=== PATIENT | male | born 1950 | race Caucasian/White ===

== ENCOUNTER → 2016-10-25 | Outpatient (CLI) | payer OTHER ==
--- NOTE | 2016-10-25 08:55 | CT ---
EXAMINATION TYPE: CT abdomen w con DATE OF EXAM: 10/25/2016 7:32 AM COMPARISON: NONE HISTORY: elevated liver enzymes CT DLP: 1164.1 mGycm, Automated Exposure Control for Dose Reduction was Utilized. CONTRAST: CT scan of the abdomen is performed with oral and with IV Contrast, patient injected with 100 mL of O mnipaque 300. FINDINGS: LUNG BASES: Some focal linear scarring or atelectasis in the lingula at level of diaphragm is noted o n axial image 15. LIVER/GB: Liver is diffusely hypodense suggesting probable fatty infiltration but this finding should be confirmed with noncontrast CT/MRI or ultrasound if desired. No suspicious solid or cystic intrahe patic mass is identified. No suspicious intrahepatic or extrahepatic biliary dilatation is seen. PANCREAS: No significant abnormality is seen. SPLEEN: No significant abnormality is seen. ADRENALS: No significant abnormality is seen. KIDNEYS: No significant abnormality is seen. BOWEL: The oral contrast does not reach colonic level. There is no suspicious small or large bowel di latation seen. Normal-appearing appendix is seen from cecum. LYMPH NODES: No greater than 1cm abdominal lymph nodes are appreciated. OSSEOUS STRUCTURES: No significant abnormality is seen. OTHER: No significant additional abnormality is seen. IMPRESSION: Probable diffuse fatty infiltration of liver.
== END | disposition home or self-care (01) ==
LOC: RADCTMAIN 06:35
PROVIDERS: ATTEND Family Medicine
DX: R74.8 Abnormal levels of other serum enzymes (principal)
CPT/HCPCS: 74160; Q9967

== ENCOUNTER → 2016-10-30 | Outpatient (CLI) | payer OTHER ==
--- NOTE | 2016-10-30 21:48 | MR ---
EXAMINATION TYPE: MR lumbar spine wo/w con DATE OF EXAM: 10/30/2016 9:22 PM COMPARISON: CT abdomen October 25, 2016. HISTORY: Low back pain radiating to left lower extremity per order. Severe back pain into left hip bu ttocks and thigh per patient. TECHNIQUE: Multiplanar, multisequence images of the lumbar spine is performed without and with IV contrast, util izing 20 mL intravenous MultiHance FINDINGS: Sagittal images of the lumbar spine show vertebral body heights and alignment to appear sat isfactory. Multilevel disc desiccation is seen but disc space heights are fairly well-maintained. Pos terior disc herniations are seen L4-L5 and L5-S1 levels on sagittal images. Increased signal posterio rly consistent with annular tear is noted at these levels. The conus medullaris is slightly high in p osition ending at inferior T12 vertebral body level. No abnormal signal is seen. No suspicious clumpi ng of lumbosacral nerve roots is noted. The bone marrow signal intensity is overall slightly heteroge neous. No abnormal postcontrast enhancement is noted. No significant spurring is seen. Axial images show the T12-L1 level to appear within normal limits. Axial images at L1-L2 level show mild broad disc bulge mildly effacing anterior thecal sac on axial i mage 25, bilateral neural foramina are patent. Axial images at L2-L3 level show mild to moderate broad disc bulge mildly effacing anterior thecal sa c. There is mild facet degenerative changes and ligamentum flavum hypertrophy. There is mild bilatera l anterior inferior neural foraminal narrowing at this level identified. Axial images at L3-L4 level show moderate broad-based posterior disc protrusion mildly effacing anter ior thecal sac on axial image 15. There is mild facet degenerative changes bilaterally. There is mild to moderate right and mild left-sided anterior inferior neural foraminal narrowing noted at this lev el. Axial images at L4-L5 level show broad-based left paracentral disc protrusion effacing anterolateral thecal sac and left lateral recess, effacement of central left L4 nerve is suspected on axial image 1 0. There are mild facet degenerative changes and ligamentum flavum hypertrophy. There is mild bilater al anterior inferior neural foraminal narrowing at this level identified. Axial images at the L5-S1 level show broad-based central disc protrusion but spinal canal is preserve d. There are mild to moderate facet degenerative changes bilaterally. Bilateral neural foramina are p atent. Paraspinal muscle bulk is preserved. No suspicious retroperitoneal findings are identified. IMPRESSION: Multilevel degenerative changes in the lumbar spine as detailed above. Attention to L4-L5 level where eccentric disc herniation effaces anterolateral thecal sac and lateral recess and suspec angel the central left L5 nerve.
== END | disposition home or self-care (01) ==
LOC: RADMRIMAIN 20:12
PROVIDERS: ATTEND Family Medicine
DX: M47.26 Other spondylosis with radiculopathy, lumbar region (principal); M47.816 Spondylosis without myelopathy or radiculopathy, lumbar region
CPT/HCPCS: 72158; A9577

== ENCOUNTER 2017-12-19 13:08 | Emergency (ER) | payer MEDICARE, OTHER ==
[2017-12-19 13:34] VITALS: RESP 18
[2017-12-19] MEDS ORDERED: ORPHENADRINE 30 MG/ML 2 ML VIAL IM STA (14:00)
[2017-12-19] MEDS ORDERED: KETOROLAC 60 MG/2 ML VIAL IM STA (14:00)
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
--- NOTE | 2017-12-19 14:59 | XR ---
Lumbar spine HISTORY: Sciatica, pain 3 views of the lumbar spine Lumbar spine MRI dated 10/30/2016 There is a spinal curvature. Lumbar vertebral bodies show stable height and alignment. Bone mineraliz ation is reduced. Loss of disc height is present at L5-S1, there is multilevel spondylosis. Sclerosis present in the posterior elements of the lower lumbar spine. IMPRESSION: Degenerative disc disease, facet arthropathy, osteopenia, scoliosis.
--- NOTE | 2017-12-19 15:02 | XR ---
Right shoulder HISTORY: Pain 3 views of right shoulder Bone mineralization, joint spaces and alignment are maintained. Calcification is present near the ins ertion of the rotator cuff on the proximal humerus. Right lung apex as visualized is normal. IMPRESSION: Consider calcific tendinitis.
--- NOTE | 2017-12-19 15:30 | ED ---
Disposition Clinical Impression: Acute exacerbation of chronic low back pain, DDD (degenerative disc disease), lumbar, Scoliosis of lumbar spine, Spondylosis of lumbar spine, Calcific tendinitis of right shoulder Disposition: HOME SELF-CARE Condition: Good Instructions: Chronic Back Pain (ED), Degenerative Disc Disease (ED) Additional Instructions: Patient denies follow-up with orthopedic outpatient coding specialist. Take muscle relaxers as prescribed. Return to the emergency department if any alarming signs or symptoms occur. Prescriptions: HYDROcodone/APAP 10-325MG [[place] 10-325] 1 tab PO Q4-6H PRN #15 tab PRN Reason: Pain Orphenadrine [Norflex] 100 mg PO Q12H #12 tablet.er Is patient prescribed a controlled substance at d/c from ED?: No If prescribed controlled substance>3 days was MAPS reviewed?: No When asked, does pt state using other controlled substances?: No Referrals: George Singh MD [Primary Care Provider] - 1-2 days Nico Ignacio DO [Doctor of Osteopathic Medicine] - 1-2 days
[2017-12-19 15:38] VITALS: BP 154/83; PULSE 69; TEMP 97.4
== END 2017-12-19 15:38 | disposition home or self-care (01) ==
LOC: EC 13:08
DX: M51.36 Other intervertebral disc degeneration, lumbar region (principal); M41.86 Other forms of scoliosis, lumbar region; M47.896 Other spondylosis, lumbar region; M75.31 Calcific tendinitis of right shoulder; M54.5 Low back pain; G89.29 Other chronic pain; F32.9 Major depressive disorder, single episode, unspecified; Z79.899 Other long term (current) drug therapy; Z88.0 Allergy status to penicillin; Z88.2 Allergy status to sulfonamides
CPT/HCPCS: 72100; 73030; 99284; 96372 ×2; J2360; J1885

== ENCOUNTER 2018-05-14 19:20 | Inpatient (IN) | payer OTHER, MEDICARE ==
[2018-05-14] MEDS ORDERED: MORPHINE SULFATE 4 MG/ML SYRINGE IM STA (21:07)
[2018-05-14] MEDS ORDERED: ORPHENADRINE 30 MG/ML 2 ML VIAL IM STA (21:07)
--- NOTE | 2018-05-14 22:15 | CT ---
EXAMINATION TYPE: CT lumbar spine wo con DATE OF EXAM: 05/14/2018 9:53 PM COMPARISON: None HISTORY: Back pain CT DLP: mGycm Automated exposure control for dose reduction was used. Unenhanced CT of the lumbar spine was performed. Bone and soft tissue window settings are submitted as well as coronal and sagittal reconstructions. Lumbar vertebra have normal alignment. There is compression deformity of L4 vertebral body with depre ssion of the superior endplate. There is 25% loss of height. The fracture appears acute. There is no lumbar paraspinal mass. There is mild lateral recess stenosis due to facet arthropathy in the mid and lower lumbar spine. Sacroiliac joints are intact. There is osteopenia. IMPRESSION: L4 compression fracture is new compared to 10/25/2016 CT scan. Fracture appears acute. Osteopenia. The re is only minimal posterior fragment extension encroaching the spinal canal 3 mm.
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
[2018-05-14] MEDS ORDERED: ONDANSETRON 4 MG/2 ML VIAL IVP PRN (23:26)
[2018-05-14] MEDS ORDERED: NALOXONE 0.4 MG/ML 1 ML VIAL IV PRN (23:26)
[2018-05-15 00:10] LABS: Basophils # (A) 0.1 k/uL (0-0.2); Basophils % (A) 1 %; Eosinophils # (A) 0.2 k/uL (0-0.7); Eosinophils % (A) 2 %; HCT 44.2 % (39.0-53.0); Lymphocytes # (A) 1.9 k/uL (1.0-4.8); Lymphocytes % (A) 17 %; MCH 29.6 pg (25.0-35.0); MCHC 33.9 g/dL (31.0-37.0); MCV 87.5 fL (80.0-100.0); Mean Platelet Volume 6.3; Monocytes # (A) 0.8 k/uL (0-1.0); Monocytes % (A) 7 %; Neutrophils # (A) 8.2 k/uL (1.3-7.7); Neutrophils % (A) 73 %; Platelet Count 222 k/uL (150-450); RBC 5.05 m/uL (4.30-5.90); RDW 12.9 % (11.5-15.5); WBC 11.2 k/uL (3.8-10.6)
[2018-05-15 00:19] LABS: ALT 83 U/L (21-72); AST 59 U/L (17-59); Albumin 4.2 g/dL (3.5-5.0); Alkaline Phosphatase 78 U/L (38-126); Anion Gap 10 mmol/L; Blood Urea Nitrogen 20 mg/dL (9-20); Calcium 9.4 mg/dL (8.4-10.2); Carbon Dioxide 22 mmol/L (22-30); Chloride 105 mmol/L (98-107); Glucose 107 mg/dL (74-99); Potassium 4.1 mmol/L (3.5-5.1); Sodium 137 mmol/L (137-145); Total Bilirubin 0.4 mg/dL (0.2-1.3); Total Protein 7.3 g/dL (6.3-8.2)
[2018-05-15] MEDS: MORPHINE SULFATE 4 MG/ML SYRINGE IV PRN ×2 (00:26→03:56)
[2018-05-15 00:44] VITALS: BMI 29.6
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
[2018-05-15] MEDS: HYDROcodone/APAP 5-325MG 1 EACH TAB PO PRN ×2 (10:54→15:09)
[2018-05-15] MEDS: CITALOPRAM HYDROBROMIDE 20 MG TAB PO SCH (10:57)
[2018-05-15 11:46] LABS: Appearance,Urine Clear (Clear); Bilirubin,Urine Negative (Negative); Blood,Urine Negative (Negative); Color,Urine Yellow; Glucose,Urine (UA) Negative (Negative); Ketones,Urine Negative (Negative); Leukocyte Esterase,Urine Negative (Negative); Nitrite,Urine Negative (Negative); Protein,Urine Negative (Negative); Specific Gravity,Urine 1.016 (1.001-1.035); Urobilinogen,Urine <2.0 mg/dL (<2.0)
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
[2018-05-15] MEDS: CYCLOBENZAPRINE 10 MG TAB PO PRN (18:15)
[2018-05-15] MEDS ORDERED: SENNOSIDES 8.6 MG TAB PO STA (18:17)
[2018-05-16] MEDS: HYDROcodone/APAP 5-325MG 1 EACH TAB PO PRN ×4 (00:19→20:44)
[2018-05-16] MEDS: CITALOPRAM HYDROBROMIDE 20 MG TAB PO SCH (07:20)
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
[2018-05-17] MEDS: HYDROcodone/APAP 5-325MG 1 EACH TAB PO PRN ×4 (01:48→21:16)
[2018-05-17] MEDS: CITALOPRAM HYDROBROMIDE 20 MG TAB PO SCH (07:19)
--- NOTE | 2018-05-17 11:39 | P.PN ---
Progress Note - Text Progress Note Date: 05/17/18 The patient's discharge was delayed due to his increased back pain. Patient is currently being evaluated by Dr. Ignacio. Is unsure if he will need surgery for his fracture. On exam is lesser stable. His abdomen is soft. We will transfer care to Dr. Girard service. We will sign off.
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
[2018-05-17 20:16] VITALS: RESP 18
[2018-05-18] MEDS: CYCLOBENZAPRINE 10 MG TAB PO PRN (00:51)
[2018-05-18] MEDS: HYDROcodone/APAP 5-325MG 1 EACH TAB PO PRN ×3 (02:49→14:14)
[2018-05-18 08:05] VITALS: BP 156/89; PULSE 65; TEMP 97.9
[2018-05-18] MEDS: CITALOPRAM HYDROBROMIDE 20 MG TAB PO SCH (08:19)
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
== END 2018-05-18 14:30 | disposition home or self-care (01) | DRG 552 ==
LOC: EC 19:20 → 3SUR 23:37 → 4SSUR 05-17 07:38
PROVIDERS: ADMIT Orthopaedic Surgery Orthopaedic Surgery of the Spine; ATTEND Orthopaedic Surgery Orthopaedic Surgery of the Spine
DX: S32.041A Stable burst fracture of fourth lumbar vertebra, initial encounter for closed fracture (principal); F32.9 Major depressive disorder, single episode, unspecified; M16.0 Bilateral primary osteoarthritis of hip; M51.36 Other intervertebral disc degeneration, lumbar region; M47.816 Spondylosis without myelopathy or radiculopathy, lumbar region; M48.061 Spinal stenosis, lumbar region without neurogenic claudication; M54.2 Cervicalgia; G89.29 Other chronic pain; G43.909 Migraine, unspecified, not intractable, without status migrainosus; R43.9 Unspecified disturbances of smell and taste; H91.91 Unspecified hearing loss, right ear; Z79.899 Other long term (current) drug therapy; Z86.73 Personal history of transient ischemic attack (TIA), and cerebral infarction without residual deficits; Z87.39 Personal history of other diseases of the musculoskeletal system and connective tissue; Z87.81 Personal history of (healed) traumatic fracture; Z88.0 Allergy status to penicillin; Z88.2 Allergy status to sulfonamides; V48.5XXA Car driver injured in noncollision transport accident in traffic accident, initial encounter; Y92.410 Unspecified street and highway as the place of occurrence of the external cause; Z83.49 Family history of other endocrine, nutritional and metabolic diseases; Z82.0 Family history of epilepsy and other diseases of the nervous system; Z80.0 Family history of malignant neoplasm of digestive organs; Z80.8 Family history of malignant neoplasm of other organs or systems; Z82.49 Family history of ischemic heart disease and other diseases of the circulatory system
CPT/HCPCS: 72020; 72131; 80053; 81003; 85025; 96372; 99285

== ENCOUNTER → 2018-06-29 | Outpatient (CLI) | payer OTHER, MEDICARE ==
--- NOTE | 2018-06-29 18:49 | MR ---
EXAMINATION TYPE: MR brain/cspine wo/w DATE OF EXAM: 06/29/2018 COMPARISON: 06/06/2016 brain HISTORY: 67-year-old male Headaches, neck pain TECHNIQUE: Multiplanar, multisequence images of the brain and brainstem were acquired before and aft er administration of 10 mL IV Gadavist. Diffusion weighted imaging is performed. Subsequent planar, multi sequence images of the cervical spine before and after IV contrast administration. FINDINGS: HEAD: No evidence for acute infarction, hemorrhage, mass, mass effect, midline shift, herniation, effacemen t of basal cisterns, or extra-axial fluid collection. The ventricles and sulci are age-appropriate. Stable extensive cortical and subcortical areas of T2/FLAIR weighted signal in the anterior right fro ntal lobe and to a lesser extent, along the floor of the anterior left frontal lobe. A few scattered T2 bright white matter foci in the subcortical region of the anterior left frontal lo be are also unchanged. Major intracranial flow voids are intact. Midline structures demonstrate normal morphology. The craniocervical junction is normal. Post contrast images demonstrate no evidence of pathologic enhancement. Dural venous sinuses are pat ent. The visualized sinuses are clear and the globes are intact. CERVICAL SPINE: No craniocervical junction abnormality, predental space widening, or prevertebral soft tissue swellin g. Mild degenerative changes of the C1 dens articulation. Mild heterogeneity of marrow signal without suspicious bone marrow replacement. Some scattered fatty Modic type II endplate changes present. Mild to moderate degenerative disc disease characterized by variable disc desiccation and disc osteop hyte complex formation. Disc osteophyte complexes are present from C3 through C7 levels. Additional scattered facet and uncovertebral joint degenerative change. Possible abnormal enhancing lesion along the right aryepiglottic fold, refer to axial postcontrast se oliver 1301, axial 26. At C2-C3, facet and uncovertebral joint degenerative change causes mild bilateral neuroforaminal sten osis without significant spinal canal stenosis. At C3-C4, large discussed by complex with uncovertebral joint and facet degenerative change. This con tinues to a mild spinal canal stenosis with abutment in minimal flattening of the ventral cord and no cord compression. Changes resulting in moderate left and mild right neural foraminal stenosis. At C4-C5, there is disc osteophyte complex with uncovertebral joint and facet degenerative change. Th is results in moderate right greater than left neuroforaminal stenosis without significant spinal can al stenosis. At C5-C6, disc osteophyte complex with uncovertebral joint and facet degenerative change. This minima lly impresses on the ventral thecal sac without significant spinal canal stenosis. Changes within mod erate right and mild left neuroforaminal stenosis. At C6-C7, there is disc osteophyte complex with uncovertebral joint and facet degenerative change. Ch anges result in moderate bilateral neuroforaminal stenosis with minimal narrowing of the ventral thec al sac. No significant spinal canal stenosis. At C7-T1, mild facet arthropathy without significant canal or foraminal stenosis. Alignment is maintained. Normal caliber and signal intensity of the cervical cord. No abnormal enhancement within the spinal c anal. COMBINED IMPRESSION: HEAD: 1. Stable encephalomalacia and gliosis within the anterior right frontal lobe and to a lesser extent along the floor of the anterior left frontal lobe. Finding suggests sequela of prior traumatic or vas cular insult, the former being favored. Clinically correlate. 2. Stable mild scattered foci of white white matter change in the left frontal lobe. This could refle ct very mild burden of chronic small vessel ischemic disease or chronic migraines. 3. No acute intracranial abnormality seen. CERVICAL SPINE: 1. POSSIBLE ABNORMAL ENHANCING MUCOSAL LESION ALONG THE RIGHT ARYEPIGLOTTIC FOLD. CONTRAST ENHANCED C T NECK OR DIRECT VISUALIZATION RECOMMENDED. 2. MODERATE MULTILEVEL DEGENERATIVE DISC DISEASE WELL MULTILEVEL FACET AND UNCOVERTEBRAL JOINT ARTHROPATHY. 3. CHANGES RESULT IN MILD OVERALL SPINAL CANAL STENOSIS AT C3-C4 WITH MINIMAL ABUTMENT AND FLATTENING OF THE VENTRAL CORD AT THIS LEVEL. NO ELOISE CANAL COMPROMISE OR CORD COMPRESSION. 4. VARIABLE MULTILEVEL MODERATE NEURAL FORAMINAL STENOSES OUTLINED ABOVE.
== END | disposition home or self-care (01) ==
LOC: RADMRIMAIN 12:08
PROVIDERS: ATTEND Family Medicine
DX: M48.02 Spinal stenosis, cervical region (principal); M99.71 Connective tissue and disc stenosis of intervertebral foramina of cervical region; M50.30 Other cervical disc degeneration, unspecified cervical region; M46.97 Unspecified inflammatory spondylopathy, lumbosacral region; R90.89 Other abnormal findings on diagnostic imaging of central nervous system; G93.89 Other specified disorders of brain
CPT/HCPCS: 70553; 72156; A9585

== ENCOUNTER → 2018-07-30 | Outpatient (CLI) | payer MEDICARE, OTHER ==
--- NOTE | 2018-07-30 15:07 | XR ---
EXAMINATION TYPE: XR chest 2V DATE OF EXAM: 07/30/2018 COMPARISON: Prior chest x-ray 07/01/2016 HISTORY: Presurgery TECHNIQUE: Frontal and lateral views of the chest are obtained. FINDINGS: There is no focal air space opacity, pleural effusion, or pneumothorax seen. The cardiac silhouette size is within normal limits. The osseous structures are intact. IMPRESSION: No acute cardiopulmonary process.
[2018-07-30 15:30] LABS: Appearance,Urine Cloudy (Clear); Bacteria,Urine Rare /hpf; Bilirubin,Urine Negative (Negative); Blood,Urine Negative (Negative); Color,Urine Yellow; Glucose,Urine (UA) Negative (Negative); Ketones,Urine Negative (Negative); Leukocyte Esterase,Urine Negative (Negative); Mucus,Urine Few /hpf; Nitrite,Urine Negative (Negative); PH, Urine 5.5 (5.0-8.0); Protein,Urine Negative (Negative); Specific Gravity,Urine 1.016 (1.001-1.035); Sperm,Urine Rare /hpf; Urobilinogen,Urine <2.0 mg/dL (<2.0); WBC,Urine <1 /hpf (0-5)
[2018-07-30 15:38] LABS: Basophils # (A) 0.1 k/uL (0-0.2); Basophils % (A) 1 %; Eosinophils # (A) 0.2 k/uL (0-0.7); Eosinophils % (A) 2 %; HCT 45.9 % (39.0-53.0); HGB 15.6 gm/dL (13.0-17.5); Lymphocytes # (A) 1.9 k/uL (1.0-4.8); Lymphocytes % (A) 27 %; MCH 29.9 pg (25.0-35.0); MCHC 33.9 g/dL (31.0-37.0); MCV 88.2 fL (80.0-100.0); Mean Platelet Volume 6.7; Monocytes # (A) 0.6 k/uL (0-1.0); Monocytes % (A) 9 %; Neutrophils # (A) 4.1 k/uL (1.3-7.7); Neutrophils % (A) 60 %; Platelet Count 274 k/uL (150-450); RDW 12.8 % (11.5-15.5); WBC 6.9 k/uL (3.8-10.6)
[2018-07-30 15:40] LABS: Anion Gap 10 mmol/L; Blood Urea Nitrogen 16 mg/dL (9-20); Calcium 9.9 mg/dL (8.4-10.2); Carbon Dioxide 23 mmol/L (22-30); Chloride 106 mmol/L (98-107); Glucose 106 mg/dL (74-99); INR 1.1 (<1.2); Partial Thromboplastin Time 24.9 sec (22.0-30.0); Potassium 4.7 mmol/L (3.5-5.1); Prothrombin Time 11.1 sec (9.0-12.0); Sodium 139 mmol/L (137-145)
== END ==
LOC: LABPAT 14:27
PROVIDERS: ATTEND Orthopaedic Surgery Orthopaedic Surgery of the Spine
DX: Z01.818 Encounter for other preprocedural examination (principal); Z01.812 Encounter for preprocedural laboratory examination; S32.049A Unspecified fracture of fourth lumbar vertebra, initial encounter for closed fracture; M54.5 Low back pain
CPT/HCPCS: 36415; 71046; 80048; 81001; 85025; 85610; 85730

== ENCOUNTER 2018-08-10 12:05 | Day surgery (SDC) | payer MEDICARE, OTHER ==
[2018-07-29 13:18] VITALS: BMI 29.1
[~2018-08-10 12:05] MED LIST: DEXAMETHASONE SOD PHOSPHATE 10 MG/ML 1 ML VIAL IV ONE; LACTATED RINGERS 1,000 ML IV SCH; LIDOCAINE 1% 20 ML VIAL (10MG/ML) FOR IV START INTRADERMA PRN; MIDAZOLAM (PF) 2 MG/2 ML VIAL IV PRN; ceFAZolin IN SWFI 2 GM/20 ML SYRINGE IVP ONE; fentaNYL (PF) 50 MCG/ML 2 ML AMP IV PRN
[2018-08-10] MEDS ORDERED: DEXAMETHASONE SOD PHOSPHATE 10 MG/ML 1 ML VIAL IV ONE (13:33)
[2018-08-10] MEDS ORDERED: MIDAZOLAM 2 MG/2 ML VIAL IV ONE (13:34)
[2018-08-10] MEDS ORDERED: GLYCOPYRROLATE 0.2 MG/ML 2 ML VIAL ONE (13:48)
[2018-08-10] MEDS ORDERED: LIDOCAINE 1% INJ 10MG/ML (20 ML MDV) ONE (13:48)
[2018-08-10] MEDS ORDERED: PROPOFOL 10 MG/ML 20 ML VIAL IV ONE (13:48)
[2018-08-10] MEDS ORDERED: PHENYLEPHRINE-0.9% NACL SYG 1 MG/10 ML SYRINGE ONE (13:48)
[2018-08-10] MEDS ORDERED: fentaNYL (PF) 50 MCG/ML 2 ML AMP ONE (13:48)
[2018-08-10] MEDS ORDERED: MIDAZOLAM 2 MG/2 ML VIAL ONE (13:48)
[2018-08-10] MEDS ORDERED: SUCCINYLCHOLINE CHLORIDE 100 MG/5 ML SYR IV ONE (13:48)
[2018-08-10] MEDS ORDERED: CLINDAMYCIN 150 MG/ML 4 ML VIAL IVPB ONE (13:57)
[2018-08-10] MEDS ORDERED: IOPAMIDOL M200 10 ML VIAL MISCELLANE ONE (14:13)
[2018-08-10] MEDS ORDERED: BUPIVACAIN-EPI 0.5%-1:200,000 30 ML VIAL SQ ONE ×2 (14:13)
[2018-08-10] MEDS ORDERED: HYDROcodone/APAP 5-325MG 1 EACH TAB PO PRN ×2 (14:55)
[2018-08-10] MEDS ORDERED: BENZOCAINE/MENTHOL LOZENG 1 EACH LOZENGE MUCOUS MEM PRN (14:55)
[2018-08-10] MEDS ORDERED: KETOROLAC 30 MG/ML 1 ML VIAL IVP PRN (14:55)
[2018-08-10] MEDS ORDERED: HYDROmorphone 0.5 MG/0.5 ML SYRINGE IVP PRN (14:55)
[2018-08-10] MEDS ORDERED: HYDROmorphone 1 MG/ML 1 ML SYRINGE IVP PRN (14:55)
[2018-08-10] MEDS ORDERED: ONDANSETRON 4 MG/2 ML VIAL IVP PRN (14:55)
[2018-08-10] MEDS ORDERED: traMADol 50 MG TAB PO PRN (14:57)
[2018-08-10] MEDS ORDERED: SODIUM CHLORIDE 0.9% 1,000 ML IV SCH (15:00)
--- NOTE | 2018-08-10 15:01 | P.OP ---
Date of Procedure: 08/10/18 Preoperative Diagnosis: L4 traumatic compression fracture, low back pain Postoperative Diagnosis: Same Anesthesia: GETA Pathology: other (L4 vertebral body biopsy to pathology) Condition: stable Disposition: PACU Description of Procedure: BRIEF OPERATIVE NOTE Preoperative Diagnosis: Vertebral compression fracture, traumatic of L4 with low back pain Postoperative Diagnosis: Same Procedure: Kyphoplasty of L4 Vertebral body biopsy of L4 Use of biplanar fluoroscopic guidance Surgeon: Dr. Ignacio Electrodynamicist: Julio César Wiley is present throughout the entire the case persistence during positioning, dissection, exposure, visualization, and all crucial elements of the case as well as closure. Anesthesia: General anesthesia Estimated blood loss: Less than 10 mL Specimen: Vertebral body biopsy sent to pathology in formalin Complications: None apparent Components implanted: Bone cement Disposition: To recovery room in good stable condition. OPERATIVE INDICATIONS The patient has been having issues in their back ever since sustaining an injury. He did sustain an injury and was found have a traumatic compression fracture at L4 and acute onset of low back pain. We attempted treat him conservatively over the past couple of months however he was continued have unrelenting pain and severe debility and inability to Get up and around pain in his back. The patient has been through conservative treatment. They attempted conservative care with bracing however they're not having any benefit despite brace use. They continue to have significant pain and debility due to their fracture. We discussed various treatment options including surgery, and the patient wishes to proceed with surgery We discussed the risk, patient's alternatives and benefits of surgery including but not limited to, risk of bleeding risk of infection, risk of need for further surgery, risk of decreased , loss of motion, loss of function, cement extravasation, nerve damage, paralysis, heart attack, blindness and . OPERATIVE SUMMARY After discussing all the risks, patient alternatives and benefits at length, the patient elected to proceed with surgical intervention, signed informed consent, and presented for their procedure. The patient was seen and examined in the preoperative holding area and the surgical site was marked. The patient was given antibiotics and brought to the operating room. The patient was sedated and intubated by anesthesia in standard fashion. The patient was positioned on to the operating room table in a prone position on the appropriate well-padded and well molded bilateral chest rolls. We were careful to pad any bony prominences and pressure points. We were careful to maintain the patient's cervical spine and good neutral alignment and position throughout. We used 2 C-arm machines to establish biplanar fluoroscopic guidance in AP and lateral positions. We were able to localize the fractures appropriately. The patient was prepped and draped in a normal standard fashion. An appropriate timeout and keystone protocol performed. We were able to proceed with the surgery. The local wound area was infiltrated with local anesthetic. An incision was made over the lateral aspect of the pedicle over the appropriate levels with a small 2 mm stab incision. Intraoperative fluoroscopy was taken which showed a marker at the appropriate level of L4. With the appropriate level positively confirmed at L4, I was able to position a sharp trocar over the lateral aspect of the pedicle. As able to advance the trocar into the pedicle and into the posterior aspect of vertebral body being careful to avoid penetration cephalad caudad or medially. The trocar was placed appropriately into the posterior aspect of vertebral body at the appropriate levels of L4. This was confirmed with C-arm guidance. With the trocar intact I was then able to take a bone biopsy with a biopsy punch or a bony drill. The biopsy specimen was passed off to be sent to pathology in formalin. I was then able to place the kyphoplasty balloon within the vertebral body. The position was checked on C-arm. I was able to inflate the balloon under low pressure and visualization with C-arm. The balloon was well enclosed within the vertebral body. The cement was prepared. With the cement at appropriate working condition the balloons were deflated and removed. I was able to place bony cement with trocar with the cement delivery device under low pressure. It had good fill within the vertebral body. There is no evidence of any extravasation of the cement posteriorly toward the canal. The cement was well contained at the appropriate levels of L4. Some of the splint moved into the disc space at L3 4 through the superior endplate fracture line. It is no extravasation posteriorly toward the canal. The cement was allowed to cure appropriately. The trochars removed and final images were taken on C-arm. This showed the cement at the appropriate levels. We were able to proceed with closure. The wound was cleaned and dried and dressed with the appropriate dressing. The drapes were broken down. The patient was gently rolled back onto their hospital bed being careful to maintain their cervical spine and good neutral alignment and position. They were woken up by anesthesia, extubated, and brought to the recovery room in good stable condition. The patient will be admitted to the hospital for observation and for appropriate postoperative care, medical management and monitoring. We will continue to follow them closely about the postoperative course.
[2018-08-10 15:02] VITALS: TEMP 98.4
--- NOTE | 2018-08-10 15:40 | XR ---
Lumbar spine HISTORY: Kyphoplasty 4 intraoperative C-arm images document the procedure.
--- NOTE | 2018-08-10 15:40 | FL ---
Fluoroscopy HISTORY: Kyphoplasty 44 seconds fluoroscopy time supplied to the referring clinician. 4 intraoperative C-arm images docum ent the procedure. See dictated report from orthopedic surgery.
[2018-08-10 16:18] VITALS: RESP 18
[2018-08-10] MEDS ORDERED: traMADol 50 MG TAB PO ONE (16:49)
[2018-08-10 17:12] VITALS: BP 130/76; PULSE 72
[2018-08-10] MEDS ORDERED: CLINDAMYCIN 900 MG in DEXTROSE 5% IN WATER 50 ML IVPB SCH ×2 (18:00)
[2018-08-11] MEDS ORDERED: NON-FORMULARY DRUG (Citalopram Hydrobromide [Celexa] 40 MG) PO SCH (09:00)
== END 2018-08-10 17:31 | disposition home or self-care (01) ==
LOC: OR 12:05
PROVIDERS: ATTEND Orthopaedic Surgery Orthopaedic Surgery of the Spine
DX: S32.041A Stable burst fracture of fourth lumbar vertebra, initial encounter for closed fracture (principal); V48.5XXA Car driver injured in noncollision transport accident in traffic accident, initial encounter; Y93.89 Activity, other specified; Y92.410 Unspecified street and highway as the place of occurrence of the external cause; M51.16 Intervertebral disc disorders with radiculopathy, lumbar region; M48.061 Spinal stenosis, lumbar region without neurogenic claudication; M51.36 Other intervertebral disc degeneration, lumbar region; M25.78 Osteophyte, vertebrae; M47.27 Other spondylosis with radiculopathy, lumbosacral region; E66.9 Obesity, unspecified; Z68.29 Body mass index [BMI] 29.0-29.9, adult; G89.29 Other chronic pain; M16.11 Unilateral primary osteoarthritis, right hip; G43.909 Migraine, unspecified, not intractable, without status migrainosus; F32.9 Major depressive disorder, single episode, unspecified; F41.9 Anxiety disorder, unspecified; H91.90 Unspecified hearing loss, unspecified ear; M81.0 Age-related osteoporosis without current pathological fracture; Z79.899 Other long term (current) drug therapy; Z79.891 Long term (current) use of opiate analgesic; Z88.0 Allergy status to penicillin; Z88.2 Allergy status to sulfonamides
CPT/HCPCS: 86900; 86901; 86850; 72100; 22514; C1713; J2250; J1100; J2001; J3010; J2370; J0330; J2704; Q9966; 88307; 88311

== ENCOUNTER → 2018-10-02 | Outpatient (CLI) | payer MEDICARE, OTHER ==
[2018-10-02 10:17] LABS: HCT 45.6 % (39.0-53.0); HGB 15.2 gm/dL (13.0-17.5); MCH 29.3 pg (25.0-35.0); MCHC 33.2 g/dL (31.0-37.0); MCV 88.2 fL (80.0-100.0); Mean Platelet Volume 6.1; Platelet Count 251 k/uL (150-450); RBC 5.18 m/uL (4.30-5.90); RDW 13.3 % (11.5-15.5); WBC 8.2 k/uL (3.8-10.6)
[2018-10-02 10:27] LABS: Partial Thromboplastin Time 25.6 sec (22.0-30.0); Prothrombin Time 10.9 sec (9.0-12.0)
[2018-10-02 10:28] LABS: Appearance,Urine Clear (Clear); Bilirubin,Urine Negative (Negative); Blood,Urine Negative (Negative); Color,Urine Yellow; Glucose,Urine (UA) Negative (Negative); Ketones,Urine Negative (Negative); Leukocyte Esterase,Urine Negative (Negative); Nitrite,Urine Negative (Negative); PH, Urine 5.5 (5.0-8.0); Protein,Urine Negative (Negative); Specific Gravity,Urine 1.015 (1.001-1.035); Urobilinogen,Urine <2.0 mg/dL (<2.0)
[2018-10-02 10:32] LABS: Anion Gap 10 mmol/L; Blood Urea Nitrogen 18 mg/dL (9-20); Carbon Dioxide 26 mmol/L (22-30); Chloride 104 mmol/L (98-107); Potassium 4.2 mmol/L (3.5-5.1); Sodium 140 mmol/L (137-145)
== END | disposition home or self-care (01) ==
LOC: LABPAT 09:27
PROVIDERS: ATTEND Orthopaedic Surgery
DX: Z01.812 Encounter for preprocedural laboratory examination (principal); M16.11 Unilateral primary osteoarthritis, right hip
CPT/HCPCS: 36415; 80051; 81003; 82565; 84520; 85027; 85610; 85730; 86850; 86900; 86901; 87070; 93005

== ENCOUNTER 2018-10-13 08:29 | Inpatient (IN) | payer MEDICARE, OTHER ==
[~2018-10-13 08:29] MED LIST changes: +ACETAMINOPHEN TAB 500 MG TAB PO ONE; +HYDROmorphone 0.5 MG/0.5 ML SYRINGE IVP PRN; -LACTATED RINGERS 1,000 ML IV SCH; -LIDOCAINE 1% 20 ML VIAL (10MG/ML) FOR IV START INTRADERMA PRN; +MELOXICAM 7.5 MG TAB PO ONE; -MIDAZOLAM (PF) 2 MG/2 ML VIAL IV PRN; +ONDANSETRON 4 MG/2 ML VIAL IVP ONE; +ROPIVACAINE 246.25 MG, EPINEPHrine 0.5 MG, KETOROLAC 30 MG, cloNIDine HCL/PF 80 MCG, WA... MISCELLANE ONE; +TRANEXAMIC ACID 1,000 MG in SODIUM CHLORIDE 0.9% 100 ML IVPB ONE; -fentaNYL (PF) 50 MCG/ML 2 ML AMP IV PRN
[2018-10-13] MEDS ORDERED: ONDANSETRON 4 MG/2 ML VIAL IVP PRN (08:57)
[2018-10-13] MEDS ORDERED: HYDROcodone/APAP 5-325MG 1 EACH TAB PO PRN (08:57)
[2018-10-13] MEDS ORDERED: hydrOXYzine PAMOATE 25 MG CAP PO PRN (08:57)
[2018-10-13] MEDS ORDERED: MAGNESIUM HYDROXIDE 2,400 MG/10 ML CUP PO PRN (08:57)
[2018-10-13] MEDS ORDERED: HYDROmorphone 0.5 MG/0.5 ML SYRINGE IVP PRN ×3 (08:57)
[2018-10-13] MEDS ORDERED: NALOXONE 0.4 MG/ML 1 ML VIAL IV PRN (08:57)
[2018-10-13] MEDS ORDERED: DIAZEPAM 5 MG TAB PO PRN (08:57)
[2018-10-13 09:07] LABS: Glucose,Whole Blood 126 mg/dL (75-99)
[2018-10-13] MEDS: LACTATED RINGERS 1,000 ML IV SCH (09:10)
[2018-10-13] MEDS ORDERED: fentaNYL (PF) 50 MCG/ML 2 ML AMP ONE (09:35)
[2018-10-13] MEDS ORDERED: CLINDAMYCIN 150 MG/ML 4 ML VIAL IVPB ONE (09:35)
[2018-10-13] MEDS ORDERED: MIDAZOLAM 2 MG/2 ML VIAL ONE (09:35)
[2018-10-13] MEDS ORDERED: diphenhydrAMINE 50 MG/ML 1 ML VIAL ONE (09:35)
[2018-10-13] MEDS ORDERED: SODIUM CHLORIDE 0.9% 100 ML BAG ONE (09:35)
[2018-10-13] MEDS ORDERED: LACTATED RINGERS 1,000 ML BAG IV ONE (09:35)
[2018-10-13] MEDS ORDERED: PHENYLEPHRINE-0.9% NACL SYG 1 MG/10 ML SYRINGE ONE (09:35)
[2018-10-13] MEDS ORDERED: TRANEXAMIC ACID 1,000 MG/10 ML VIAL ONE (09:35)
[2018-10-13] MEDS ORDERED: HEPARIN SODIUM,PORCINE 10,000 UNIT/ML 1 ML VIAL ONE (09:35)
[2018-10-13] MEDS ORDERED: CLINDAMYCIN 1,800 MG in SODIUM CHLORIDE 0.9% IRRIGATIO 3,000 ML IRRIGATION ONE (10:09)
--- NOTE | 2018-10-13 11:09 | P.OP ---
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 The articulation is Oxinium on polyethylene. Anesthesia: spinal Surgeon: Alton Guerra Cloth Neutralizer #1: Yara Christensen Estimated Blood Loss (ml): 100 Pathology: other (Femoral head) Condition: stable Disposition: PACU Indications for Procedure: After failure of conservative treatment we discussed the surgical and nonsurgica l treatment options at length. Patient wishes to proceed with a total hip arthroplasty with a direct anterior approach. Complications specific to this procedure were discussed at length, including but not limited to infection, leg length discrepancy, dislocation, and nerve injury. Patient is aware of all these complications and informed consent was obtained Operative Findings: The operative findings are consistent with severe avascular necrosis of the right hip Description of Procedure: Patient was seen and evaluated in the preoperative area, consent was reviewed, and the surgical site was marked with a skin marker. Patient was then brought to the operating room and given prophylactic antibiotics intravenously. 1 g of Tranexamic acid was also given. A spinal anesthetic was administered by the anesthesia department. The patient was then placed on the [facility] table with the bony prominences well-padded. The hip area was then prepped and draped in usual sterile fashion. A universal timeout was then performed, which confirmed the patient's name, surgical site, ALLERGIES, and procedure being performed. Next the incision site was located at 1 cm distal and 1 cm lateral to the anterior superior iliac spine. The skin and subcutaneous tissues were sharply incised. Incision was carefully dissected down to the fascia overlying the tensor fascia pao muscle. This fascia was then incised in line with the incision. Next, using blunt finger dissection, the tensor fascia pao muscle was dissected off its investing fascia. The muscle was then carefully retracted laterally with a cobra retractor over the lateral neck of the femur. Next, the circumflex vessels were identified and cauterized using the AquaMantis device. The anterior hip capsule was then exposed. The capsule was then opened and an inverted T fashion. Cobra retractors were then placed intracapsularly. The proximal femur was then visualized. The femoral neck was then osteotomized appropriate level above the lesser trochanter. Small amount of traction was placed with the [facility] table. A small wedge of bone was then removed from the remaining femoral head. Next, using a corkscrew femoral head was easily removed from the acetabulum. On gross visual inspection, the femoral head had findngs consistent with avascular necrosis. Attention was then turned to the acetabulum. the acetabulum was exposed and any remaining labrum was excised. Sequential reaming of the acetabulum was performed using fluoroscopic guidance. When the appropriate size was reached, a trial was then placed. The position and fit of the trial was checked with fluoroscopy. The trial was then removed. Then, using fluoroscopic guidance, the final implant was impacted at 20 of anteversion and 40 of abduction, and fully seated in the acetabulum. 2 screws were then placed in the acetabulum. Again fluoroscopy was used to check position of the screws. Next, the liner was then impacted, with a 20 elevated liner located in the anterior superior quadrant. Component locking was confirmed. Attention was then directed to the femur. With the aid of the [facility] table, the femur was externally rotated to approximately 130, extended, and abducted under the opposite leg. A side hook was then placed under the proximal femur, and the side hook elevator was used to elevate the proximal femur. Retractors were then placed. A capsular release was performed, as well as a release of the conjoined tendon, which afforded excellent visualization of the proximal femur. Next, a box osteotome was used to lateralize the proximal femur. A clock and watch hands dipper was then used to locate the femoral canal. Sequential broaching was then performed with appropriate size which afforded excellent fixation in the proximal femur. A trial was then placed with appropriate head and neck, and the hip was gently reduced with the aid of the [facility] table. Fluoroscopy was then used to check position of the components, as well as to ensure equal leg lengths. The hip was then gently dislocated and the trials were then removed. Final implants were then impacted and the hip was again reduced. Final fluoroscopic x-rays confirmed that the components were in anatomic position, as well as equal leg lengths. The hip was also taken through range of motion, and found to be stable. The hip was then copiously irrigated with antibiotic solution with pulsatile lavage. The hip was then irrigated with Irrisept solution. The soft tissues were then injected with a ropivacaine solution, which consisted of 246.25 mg of ropivacaine, 0.5 mg of epinephrine, 30 mg of Toradol, 80 g of clonidine, and 48.45 mL of sterile water, for a total of 100 mL of fluid injected. A second dose of 1 g of Tranexamic acid was also given. the fascia was then closed with 2-0 strata fix suture. The subcutaneous tissue was closed with 3-0 Vicryl. The subcuticular tissue was closed with 3-0 strata fix suture. The skin was then closed with Dermabond glue and a sterile silver dressing. The patient was then transferred to the recovery room in stable condition. The housekeeper and laundry assistant SANTY Katz was required due to the complexity of surgery, and the need for skilled technical support assistant for positioning, draping, exposure, retraction, and closure of the wound.
[2018-10-13 11:48] LABS: Glucose,Whole Blood 125 mg/dL (75-99)
--- NOTE | 2018-10-13 12:01 | XR ---
Right hip HISTORY: Status post right hip surgery Single frontal view of the right hip Patient is status post right hip arthroplasty. There is anatomic alignment. Lucency present in the so ft tissues. There is overlying artifact. Bone mineralization is reduced. IMPRESSION: Orthopedic follow-up.
[2018-10-13 12:26] VITALS: BMI 27.3
--- NOTE | 2018-10-13 12:53 | FL ---
Fluoroscopy HISTORY: Hip replacement 57 seconds fluoroscopy time supplied to the referring clinician. 2 intraoperative C-arm images docum ent the procedure. See dictated report from orthopedic surgery.
--- NOTE | 2018-10-13 12:54 | XR ---
Limited right hip HISTORY: Hip arthroplasty 2 intraoperative C-arm images document the procedure.
[2018-10-13] MEDS: SODIUM CHLORIDE 0.9% 1,000 ML IV SCH (14:29)
[2018-10-13] MEDS: HYDROcodone/APAP 5-325MG 1 EACH TAB PO PRN ×2 (14:59→21:44)
[2018-10-13] MEDS ORDERED: ceFAZolin IN SWFI 2 GM/20 ML SYRINGE IVP SCH (16:00)
[2018-10-13] MEDS: CLINDAMYCIN 900 MG in DEXTROSE 5% IN WATER 50 ML IVPB SCH ×2 (16:27)
[2018-10-13 16:50] LABS: Glucose,Whole Blood 194 mg/dL (75-99)
[2018-10-13] MEDS: INSULIN ASPART (NovoLOG) 100 UNIT/ML VIAL SQ SCH ×2 (17:03→21:43)
[2018-10-13 20:31] VITALS: RESP 16
[2018-10-13 20:49] LABS: Glucose,Whole Blood 176 mg/dL (75-99)
[2018-10-13] MEDS ORDERED: SENNOSIDES-DOCUSATE SODIUM 1 EACH TAB PO SCH (21:00)
[2018-10-13] MEDS ORDERED: AMITRIPTYLINE HCL 25 MG TAB PO SCH (21:00)
[2018-10-13] MEDS: ASPIRIN 325 MG TAB PO SCH (21:43)
[2018-10-13] MEDS: metFORMIN 500 MG TAB PO SCH (21:44)
[2018-10-14] MEDS: CLINDAMYCIN 900 MG in DEXTROSE 5% IN WATER 50 ML IVPB SCH ×2 (00:40)
[2018-10-14] MEDS: HYDROcodone/APAP 5-325MG 1 EACH TAB PO PRN (04:50)
[2018-10-14 06:50] LABS: Glucose,Whole Blood 134 mg/dL (75-99)
[2018-10-14] MEDS: ASPIRIN 325 MG TAB PO SCH (07:19)
[2018-10-14] MEDS: metFORMIN 500 MG TAB PO SCH (07:19)
[2018-10-14] MEDS: LACTATED RINGERS 1,000 ML IV SCH (07:20)
[2018-10-14] MEDS: INSULIN ASPART (NovoLOG) 100 UNIT/ML VIAL SQ SCH ×2 (07:20→11:52)
[2018-10-14 07:32] LABS: Basophils % (A) 0 %; Eosinophils # (A) 0.1 k/uL (0-0.7); Eosinophils % (A) 0 %; HCT 38.6 % (39.0-53.0); HGB 12.7 gm/dL (13.0-17.5); Lymphocytes # (A) 1.8 k/uL (1.0-4.8); Lymphocytes % (A) 13 %; MCH 29.6 pg (25.0-35.0); MCHC 32.9 g/dL (31.0-37.0); MCV 90.1 fL (80.0-100.0); Mean Platelet Volume 5.8; Monocytes % (A) 8 %; Neutrophils # (A) 10.3 k/uL (1.3-7.7); Neutrophils % (A) 77 %; Platelet Count 230 k/uL (150-450); RBC 4.29 m/uL (4.30-5.90); RDW 13.5 % (11.5-15.5); WBC 13.4 k/uL (3.8-10.6)
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
[2018-10-14] MEDS ORDERED: TERIPARATIDE SQ SCH (09:00)
[2018-10-14] MEDS ORDERED: MELOXICAM 7.5 MG TAB PO SCH (09:00)
[2018-10-14] MEDS ORDERED: ARIPiprazole 5 MG TAB PO SCH (09:00)
[2018-10-14] MEDS ORDERED: CITALOPRAM HYDROBROMIDE 20 MG TAB PO SCH (09:00)
[2018-10-14 09:04] VITALS: BP 151/67; PULSE 88; TEMP 97.9
[2018-10-14] MEDS ORDERED: HYDROcodone/APAP 7.5-325MG 1 EACH TAB PO PRN ×2 (09:31)
--- NOTE | 2018-10-14 09:38 | P.DS ---
Providers Date of admission: 10/13/18 08:29 Expected date of discharge: 10/14/18 Attending physician: Alton Guerra Consults: 10/13/18 08:57 Consult Physician Routine Consulting Provider: Arron Ramirez Consult Reason/Comments: medical management Do you want consulting provider notified?: Yes Primary care physician: Didier Montoya - Discharge Diagnosis(es) (1) Avascular necrosis of bone of right hip Current Visit: Yes Status: Acute (2) Avascular necrosis of hip Current Visit: Yes Status: Acute (3) S/P total hip arthroplasty Current Visit: Yes Status: Acute Hospital Course: This is a 68-year-old male with known history of avascular necrosis of the right hip. The patient presents for evaluation. After discussion and consideration patient elects to proceed with total hip arthroplasty. The patient is seen preoperatively by Dr. Guerra and medically cleared for surgery by their primary care physician. Patient is admitted to [facility] on 10/13/2018 for total hip arthroplasty. The procedures performed without complication or sequelae. The patient is doing well postoperatively. Labs and vital signs are stable on day of discharge. On day of discharge patient's hip incision is healing well. There is minimal erythema. There is no drainage noted at this time. There is minimal soft tissue swelling to the hip and thigh. Patient has full foot and ankle motion without difficulty or pain. Calf is soft and nontender to palpation. Neurovascular status to the right lower extremity is intact. Patient is discharged home good condition. Opoid start talking form is reviewed and signed at patient bedside. Please see med rec for accurate list of home medications. Plan - Discharge Summary Discharge Rx Participant: No New Discharge Prescriptions: New Aspirin 325 mg PO BID #60 tab HYDROcodone/APAP 7.5-325MG [[place] 7.5-325] 1 - 2 tab PO Q6H PRN #56 tab PRN Reason: Pain Sennosides [Senokot] 1 tab PO BID #60 tablet traMADol HCl [Ultram] 50 mg PO BID PRN #14 tab PRN Reason: Pain No Action Citalopram Hydrobromide [CeleXA] 40 mg PO DAILY traMADol HCL [Ultram] 50 mg PO Q6HR PRN 3 Days #12 tab PRN Reason: Pain metFORMIN HCL [Glucophage] 500 mg PO BID Naproxen [Naprosyn] 500 mg PO Q12HR Amitriptyline HCl [Elavil] 25 mg PO HS ARIPiprazole [Abilify] 5 mg PO DAILY Teriparatide [Forteo] 40 mcg SQ DAILY HYDROcodone/APAP 7.5-325MG [[place] 7.5-325] 1 tab PO Q6HR PRN PRN Reason: Pain Discharge Medication List Citalopram Hydrobromide [CeleXA] 40 mg PO DAILY 12/19/17 [History] traMADol HCL [Ultram] 50 mg PO Q6HR PRN 3 Days #12 tab 08/10/18 [Rx] ARIPiprazole [Abilify] 5 mg PO DAILY 10/05/18 [History] Amitriptyline HCl [Elavil] 25 mg PO HS 10/05/18 [History] Naproxen [Naprosyn] 500 mg PO Q12HR 10/05/18 [History] Teriparatide [Forteo] 40 mcg SQ DAILY 10/05/18 [History] metFORMIN HCL [Glucophage] 500 mg PO BID 10/05/18 [History] HYDROcodone/APAP 7.5-325MG [[place] 7.5-325] 1 tab PO Q6HR PRN 10/13/18 [History] Aspirin 325 mg PO BID #60 tab 10/14/18 [Rx] HYDROcodone/APAP 7.5-325MG [[place] 7.5-325] 1 - 2 tab PO Q6H PRN #56 tab 10/14/18 [Rx] Sennosides [Senokot] 1 tab PO BID #60 tablet 10/14/18 [Rx] traMADol HCl [Ultram] 50 mg PO BID PRN #14 tab 10/14/18 [Rx] Follow up Appointment(s)/Referral(s): Didier Montoya DO [Primary Care Provider] - 1 Week Alton Guerra DO [Doctor of Osteopathic Medicine] - 2 Weeks Activity/Diet/Wound Care/Special Instructions: Weightbearing as tolerated with walker. Leave dressing intact. Dressing may be removed by home care nurse or by patient in 10 days. May shower with dressing on. Please follow-up with [facility] in 2 weeks and call with any questions or concerns, .
[2018-10-14 11:44] LABS: Glucose,Whole Blood 131 mg/dL (75-99)
[2018-10-14] MEDS: SODIUM CHLORIDE 0.9% 1,000 ML IV SCH ×2 (11:52)
--- NOTE | 2018-10-15 00:30 | P.PN ---
Subjective this is pleasant 68 yo M with pmh of CVA/TIA, diabetes mellitus, osteoarthritis, gout, migraine, chronic back pain , who was admitted for right total hip arthroplasty , for avascular necrosis of his right hip. pt pain looks controlled. pt today was at her baseline with no chest pain no dyspnea, no change in urine or bowel habit , no nausea or vomiting , no abd pain , she is tolerating diet well . no fever. she is supposed to be discharged today by the primary team . vitals looks stable, and CBC showing mild leukoctysis of 13k , pt with no fever, no other s/s to suggest infection , mostly pt has reactive leukocytosis secondary to surgery . we would recommend close monitoring of his wbc. pt himself was informed with this problem and he said back to me he is going to follow up with his pcp for checking his wbc with him. Objective - Vital Signs Vital signs: Vital Signs Temp 97.9 F 10/14/18 07:00 Pulse 88 10/14/18 07:00 Resp 16 10/14/18 07:00 BP 151/67 10/14/18 07:00 Pulse Ox 94 L 10/14/18 07:00 Intake & Output 10/14/18 10/14/18 10/15/18 06:59 18:59 06:59 Intake Total 820 Output Total 200 Balance 820 -200 Intake: Intake, IV Titration 820 Amount Clindamycin 900 mg In 50 Dextrose 5% in Water 50 ml @ 50 mls/hr IVPB Q8HR MILLER Rx#:[id number] Sodium Chloride 0.9% 1, 770 000 ml @ 70 mls/hr IV . [id number] MILLER Rx#:[id number] Output: Urine 200 Other: Voiding Method Toilet Urinal # Voids 2 1 - Exam GENERAL: The patient is alert and oriented x3, not in any acute distress. Well developed, well nourished. HEENT: Pupils are round and equally reacting to light. EOMI. No scleral icterus. No conjunctival pallor. Normocephalic, atraumatic. No pharyngeal erythema. No thyromegaly. CARDIOVASCULAR: S1 and S2 present. No murmurs, rubs, or gallops. PULMONARY: Chest is clear to auscultation, no wheezing or crackles. ABDOMEN: Soft, nontender, nondistended, normoactive bowel sounds. No palpable organomegaly. MUSCULOSKELETAL: No joint swelling or deformity. right hip wound is intact with minimal erythema, expected from surgery EXTREMITIES: No cyanosis, clubbing, or pedal edema. NEUROLOGICAL: Gross neurological examination did not reveal any focal deficits. SKIN: No rashes. - Labs CBC & Chem 7: 10/14/18 07:14 Labs: Abnormal Lab Results - Last 24 Hours (Table) 10/13/18 10/14/18 10/14/18 Range/Units 20:47 06:49 07:14 WBC 13.4 H (3.8-10.6) k/uL RBC 4.29 L (4.30-5.90) m/uL Hgb 12.7 L (13.0-17.5) gm/dL Hct 38.6 L (39.0-53.0) % Neutrophils # 10.3 H (1.3-7.7) k/uL POC Glucose (mg/dL) 176 H 134 H (75-99) mg/dL 10/14/18 Range/Units 11:43 WBC (3.8-10.6) k/uL RBC (4.30-5.90) m/uL Hgb (13.0-17.5) gm/dL Hct (39.0-53.0) % Neutrophils # (1.3-7.7) k/uL POC Glucose (mg/dL) 131 H (75-99) mg/dL Assessment and Plan Assessment: avascular necrosis of his right hip., s/p right total hip arthroplasty history of CVA/TIA history of Diabetes mellitus history of chronic back pain history of migraine history of gout history of osteoarthritis Plan: this is a pleasant 68 yo M who presents for right hip replacement surgery. pt looks stable post operatively and doing well , we would recommend GI and DVT prophylaxis which is managment by the primary team especially the DVT prophylaxis. pain manamgnet as per primary team as well , however pt pain looks controlled now. Labs and medication were reviewed. Continue same treatment. Continue with symptomatic treatment. Resume home medication. Monitor lytes and vitals we recommend to monitor his WBC closely pt was instructed to follow up with her pcp in one week and with orthopedic team as instructed by them thank you for consulting us
== END 2018-10-14 14:28 | disposition home health service (06) | DRG 470 ==
LOC: 2ORMAIN 08:29 → 4SSUR 11:43
PROVIDERS: ADMIT Orthopaedic Surgery; ATTEND Orthopaedic Surgery
PROC: 0SR906A Replacement of Right Hip Joint with Oxidized Zirconium on Polyethylene Synthetic Substitute, Uncemented, Open Approach (ICD-10-PCS; principal; 2018-10-13 09:25)
DX: M16.0 Bilateral primary osteoarthritis of hip (principal); M87.9 Osteonecrosis, unspecified; H91.91 Unspecified hearing loss, right ear; E11.9 Type 2 diabetes mellitus without complications; L40.9 Psoriasis, unspecified; F41.9 Anxiety disorder, unspecified; G43.909 Migraine, unspecified, not intractable, without status migrainosus; G89.29 Other chronic pain; M10.9 Gout, unspecified; R43.9 Unspecified disturbances of smell and taste; S09.90XS Unspecified injury of head, sequela; M54.2 Cervicalgia; F32.9 Major depressive disorder, single episode, unspecified; Z79.84 Long term (current) use of oral hypoglycemic drugs; Z86.73 Personal history of transient ischemic attack (TIA), and cerebral infarction without residual deficits; Z79.899 Other long term (current) drug therapy; Z88.0 Allergy status to penicillin; Z88.2 Allergy status to sulfonamides
CPT/HCPCS: 73501; 83036; 85025; 86850; 86900; 86901; 88300

== ENCOUNTER → 2019-02-08 | Outpatient (CLI) | payer MEDICARE, OTHER ==
[2019-02-08 15:04] LABS: HCT 45.6 % (39.0-53.0); HGB 14.8 gm/dL (13.0-17.5); MCH 29.1 pg (25.0-35.0); MCHC 32.5 g/dL (31.0-37.0); MCV 89.4 fL (80.0-100.0); Mean Platelet Volume 6.1; Platelet Count 275 k/uL (150-450); RDW 13.8 % (11.5-15.5); WBC 7.9 k/uL (3.8-10.6)
[2019-02-08 15:07] LABS: Appearance,Urine Clear (Clear); Bilirubin,Urine Negative (Negative); Blood,Urine Negative (Negative); Color,Urine Yellow; Glucose,Urine (UA) Negative (Negative); Ketones,Urine Negative (Negative); Leukocyte Esterase,Urine Negative (Negative); Nitrite,Urine Negative (Negative); Protein,Urine Negative (Negative); Specific Gravity,Urine 1.016 (1.001-1.035); Urobilinogen,Urine <2.0 mg/dL (<2.0)
[2019-02-08 15:13] LABS: INR 1.1 (<1.2); Partial Thromboplastin Time 25.4 sec (22.0-30.0); Prothrombin Time 11.3 sec (9.0-12.0)
[2019-02-08 15:19] LABS: Albumin 4.5 g/dL (3.5-5.0); Calcium 9.5 mg/dL (8.4-10.2); Potassium 4.5 mmol/L (3.5-5.1); Total Bilirubin 0.6 mg/dL (0.2-1.3); Total Protein 7.4 g/dL (6.3-8.2)
== END | disposition home or self-care (01) ==
LOC: LABPAT 13:39
PROVIDERS: ATTEND Orthopaedic Surgery
DX: Z01.818 Encounter for other preprocedural examination (principal); Z01.812 Encounter for preprocedural laboratory examination; Z79.01 Long term (current) use of anticoagulants
CPT/HCPCS: 36415; 80053; 81003; 85027; 85610; 85730; 86850; 86900; 86901; 87070; 93005

== ENCOUNTER 2019-02-22 09:08 | Inpatient (IN) | payer MEDICARE, OTHER ==
[~2019-02-22 09:08] MED LIST changes: -DEXAMETHASONE SOD PHOSPHATE 10 MG/ML 1 ML VIAL IV ONE; -HYDROmorphone 0.5 MG/0.5 ML SYRINGE IVP PRN; +LIDOCAINE 1% 20 ML VIAL (10MG/ML) FOR IV START INTRADERMA PRN; +MORPHINE SULFATE 2 MG/ML SYRINGE IV PRN; -ONDANSETRON 4 MG/2 ML VIAL IVP ONE; +ONDANSETRON 4 MG/2 ML VIAL IVP PRN; -ROPIVACAINE 246.25 MG, EPINEPHrine 0.5 MG, KETOROLAC 30 MG, cloNIDine HCL/PF 80 MCG, WA... MISCELLANE ONE; -ceFAZolin IN SWFI 2 GM/20 ML SYRINGE IVP ONE
[2019-02-22] MEDS ORDERED: DIAZEPAM 5 MG TAB PO PRN (11:56)
[2019-02-22] MEDS ORDERED: HYDROmorphone 0.5 MG/0.5 ML SYRINGE IVP PRN ×3 (11:56)
[2019-02-22] MEDS ORDERED: ONDANSETRON 4 MG/2 ML VIAL IVP PRN (11:56)
[2019-02-22] MEDS ORDERED: NALOXONE 0.4 MG/ML 1 ML VIAL IV PRN (11:56)
[2019-02-22] MEDS ORDERED: HYDROcodone/APAP 5-325MG 1 EACH TAB PO PRN (11:56)
[2019-02-22] MEDS ORDERED: MAGNESIUM HYDROXIDE 2,400 MG/10 ML CUP PO PRN (11:56)
[2019-02-22] MEDS ORDERED: ROPIVACAINE 246.25 MG, EPINEPHrine 0.5 MG, KETOROLAC 30 MG, cloNIDine HCL/PF 80 MCG, WA... MISCELLANE ONE ×5 (11:58)
[2019-02-22] MEDS: LACTATED RINGERS 1,000 ML IV SCH (12:16)
[2019-02-22] MEDS ORDERED: ePHEDrine SULFATE/0.9% NACL/PF 50 MG/5 ML SYRINGE IV ONE (12:25)
[2019-02-22] MEDS ORDERED: SODIUM CHLORIDE 0.9% 100 ML BAG ONE (12:25)
[2019-02-22] MEDS ORDERED: TRANEXAMIC ACID 1,000 MG/10 ML VIAL ONE (12:25)
[2019-02-22] MEDS ORDERED: HEPARIN SODIUM,PORCINE 10,000 UNIT/ML 1 ML VIAL ONE (12:25)
[2019-02-22] MEDS ORDERED: SODIUM CHLORIDE 0.9% IRRIG 1,000 ML BTL IRRIGATION ONE (12:25)
[2019-02-22] MEDS ORDERED: MIDAZOLAM 2 MG/2 ML VIAL ONE (12:25)
[2019-02-22] MEDS ORDERED: CLINDAMYCIN 900 MG in DEXTROSE 5% IN WATER 50 ML IVPB STA ×2 (12:33)
[2019-02-22] MEDS ORDERED: SODIUM CHLORIDE 0.9% 100 ML with CLINDAMYCIN 900 MG IV ONE ×2 (12:50)
[2019-02-22] MEDS ORDERED: LACTATED RINGERS 1,000 ML IV ONE (13:12)
[2019-02-22] MEDS ORDERED: ceFAZolin 3,000 MG in SODIUM CHLORIDE 0.9% IRRIGATIO 3,000 ML IRRIGATION ONE (13:12)
--- NOTE | 2019-02-22 14:07 | P.OP ---
Date of Procedure: 02/22/19 Preoperative Diagnosis: Severe osteoarthritis left hip Postoperative Diagnosis: Severe osteoarthritis left hip Procedure(s) Performed: Left total hip arthroplasty with a direct anterior approach Implants: Stearns [employer] nephew Polarstem size 9 standard [employer]s [employer]hew R3, 3 hole acetabular shell, 58 mm [employer]hew reflection 6.5 mm cancellus screw, 25 mm 2 [employer]hew R3, XLPE 20 acetabular liner [employer]hew Oxinium femoral head 36 m, +4 All components were press-fit. The articulation is Oxinium on polyethylene. Anesthesia: spinal Surgeon: Alton Guerra Cutter Machine Tender #1: Yara Christensen Estimated Blood Loss (ml): 200 (64 mL returned with Cell Saver) Pathology: other (Femoral head) Condition: stable Disposition: PACU Indications for Procedure: After failure of conservative treatment we discussed the surgical and nonsurgical treatment options at length. Patient wishes to proceed with a total hip arthroplasty with a direct anterior approach. Complications specific to this procedure were discussed at length, including but not limited to infection, leg length discrepancy, dislocation, and nerve injury. Patient is aware of all these complications and informed consent was obtained Operative Findings: The operative findings are consistent with severe osteoarthritis of the left hip Description of Procedure: Patient was seen and evaluated in the preoperative area, consent was reviewed, and the surgical site was marked with a skin marker. Patient was then brought to the operating room and given prophylactic antibiotics intravenously. 1 g of Tranexamic acid was also given. A spinal anesthetic was administered by the anesthesia department. The patient was then placed on the [place] table with the bony prominences well-padded. The hip area was then prepped and draped in usual sterile fashion. A universal timeout was then performed, which confirmed the patient's name, surgical site, ALLERGIES, and procedure being performed. Next the incision site was located at 1 cm distal and 1 cm lateral to the anterior superior iliac spine. The skin and subcutaneous tissues were sharply incised. Incision was carefully dissected down to the fascia overlying the tensor fascia pao muscle. This fascia was then incised in line with the incision. Next, using blunt finger dissection, the tensor fascia pao muscle was dissected off its investing fascia. The muscle was then carefully retracted laterally with a cobra retractor over the lateral neck of the femur. Next, the circumflex vessels were identified and cauterized using the AquaMantis device. The anterior hip capsule was then exposed. The capsule was then opened and an inverted T fashion. Cobra retractors were then placed intracapsularly. The proximal femur was then visu alized. The femoral neck was then osteotomized appropriate level above the lesser trochanter. Small amount of traction was placed with the [place] table. A small wedge of bone was then removed from the remaining femoral head. Next, using a corkscrew femoral head was easily removed from the acetabulum. On gross visual inspection, the femoral head had complete loss of articular cartilage in multip le periarticular osteophytes. Attention was then turned to the acetabulum. the acetabulum was exposed and any remaining labrum was excised. Sequential reaming of the acetabulum was performed using fluoroscopic guidance. When the appropriate size was reached, a trial was then placed. The position and fit of the trial was checked with fluoroscopy. The trial was then removed. Then, using fluoroscopic guidance, the final implant was impacted at 20 of anteversion and 40 of abduction, and fully seated in the acetabulum. 2 screws were then placed in the acetabulum. Again fluoroscopy was used to check position of the screws. Next, the liner was then impacted, with a 20 elevated liner located in the anterior superior quadrant. Component locking was confirmed. Attention was then directed to the femur. With the aid of the [place] table, the femur was externally rotated to approximately 130, extended, and abducted under the opposite leg. A side hook was then placed under the proximal femur, and the side hook elevator was used to elevate the proximal femur. Retractors were then placed. A capsular release was performed, as well as a release of the conjoined tendon, which afforded excellent visualization of the proximal femur. Next, a box osteotome was used to lateralize the proximal femur. A hand tool lapper was then used to locate the femoral canal. Sequential broaching was then performed with appropriate size which afforded excellent fixation in the proximal femur. A trial was then placed with appropriate head and neck, and the hip was gently reduced with the aid of the [place] table. Fluoroscopy was then used to check position of the components, as well as to ensure equal leg lengths. The hip was then gently dislocated and the trials were then removed. Final implants were then impacted and the hip was again reduced. Final fluoroscopic x-rays confirmed that the components were in anatomic position, as well as equal leg lengths. The hip was also taken through range of motion, and found to be stable. The hip was then copiously irrigated with antibiotic solution with pulsatile lavage. The hip was then irrigated with Irrisept solution. The soft tissues were then injected with a ropivacaine solution, which consisted of 246.25 mg of ropivacaine, 0.5 mg of epinephrine, 30 mg of Toradol, 80 g of clonidine, and 48.45 mL of sterile water, for a total of 100 mL of fluid injected. A second dose of 1 g of Tranexamic acid was also given. the fascia was then closed with 2-0 strata fix suture. The subcutaneous tissue was closed with 3-0 Vicryl. The subcuticular tissue was closed with 3-0 strata fix suture. The skin was then closed with Dermabond glue and a sterile silver dressing. The patient was then transferred to the recovery room in stable condition. The assistant teacher primary SANTY Katz was required due to the complexity of surgery, and the need for skilled interior design assistant for positioning, draping, exposure, retraction, and closure of the wound.
[2019-02-22 15:30] VITALS: BMI 28.7
--- NOTE | 2019-02-22 16:31 | XR ---
Limited left hip HISTORY: Postop Single frontal view of the left hip Patient is status post left hip arthroplasty. Lucency present in the soft tissues. There is anatomic alignment. Bone mineralization is reduced. IMPRESSION: Orthopedic follow-up.
[2019-02-22] MEDS: HYDROcodone/APAP 5-325MG 1 EACH TAB PO PRN (16:34)
--- NOTE | 2019-02-22 17:19 | FL ---
EXAMINATION TYPE: FL guidance operating room, XR Hip Limited LT DATE OF EXAM: 02/22/2019 CLINICAL HISTORY: Left hip pain, osteoarthritis. TECHNIQUE: Fluoroscopy. Limited intraoperative view left hip. COMPARISON: None. FINDINGS: Fluoroscopic guidance was provided during hip replacement procedure performed by Dr. Erlin watkins. A total of 51 seconds of fluoroscopic time was utilized during the procedure and 2 spot intraop erative images are acquired. Images acquired show metallic hardware from total hip arthroplasty satisfactory in position on fronta l projection. IMPRESSION: As Above.
[2019-02-22] MEDS: SODIUM CHLORIDE 0.9% 1,000 ML IV SCH (18:28)
[2019-02-22] MEDS: CLINDAMYCIN 900 MG in DEXTROSE 5% IN WATER 50 ML IVPB SCH ×2 (20:33)
[2019-02-22] MEDS: ASPIRIN 325 MG TAB PO SCH (20:33)
[2019-02-22] MEDS ORDERED: SENNOSIDES-DOCUSATE SODIUM 1 EACH TAB PO SCH (21:00)
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
[2019-02-23] MEDS: SODIUM CHLORIDE 0.9% 1,000 ML IV SCH (03:51)
[2019-02-23] MEDS: CLINDAMYCIN 900 MG in DEXTROSE 5% IN WATER 50 ML IVPB SCH ×2 (05:09)
[2019-02-23] MEDS: LACTATED RINGERS 1,000 ML IV SCH (07:05)
[2019-02-23] MEDS: HYDROcodone/APAP 5-325MG 1 EACH TAB PO PRN ×2 (07:13→14:28)
[2019-02-23] MEDS: hydrOXYzine PAMOATE 25 MG CAP PO PRN ×2 (07:14→14:28)
[2019-02-23] MEDS: ASPIRIN 325 MG TAB PO SCH (07:15)
[2019-02-23 07:36] VITALS: BP 108/62; PULSE 92; RESP 15; TEMP 98.8
[2019-02-23 07:52] LABS: Basophils % (A) 1 %; Eosinophils # (A) 0.1 k/uL (0-0.7); Eosinophils % (A) 1 %; HCT 38.4 % (39.0-53.0); HGB 12.3 gm/dL (13.0-17.5); Lymphocytes # (A) 1.4 k/uL (1.0-4.8); Lymphocytes % (A) 16 %; MCHC 32.1 g/dL (31.0-37.0); MCV 90.4 fL (80.0-100.0); Mean Platelet Volume 6.2; Monocytes # (A) 0.8 k/uL (0-1.0); Monocytes % (A) 8 %; Neutrophils # (A) 6.6 k/uL (1.3-7.7); Neutrophils % (A) 73 %; Platelet Count 216 k/uL (150-450); RBC 4.25 m/uL (4.30-5.90); RDW 13.9 % (11.5-15.5); WBC 9.1 k/uL (3.8-10.6)
[2019-02-23] MEDS ORDERED: ATORVASTATIN 20 MG TAB PO SCH (09:00)
[2019-02-23] MEDS ORDERED: MELOXICAM 7.5 MG TAB PO SCH (09:00)
[2019-02-23] MEDS ORDERED: CITALOPRAM HYDROBROMIDE 20 MG TAB PO SCH (09:00)
[2019-02-23] MEDS ORDERED: LISINOPRIL 20 MG TAB PO SCH (09:00)
--- NOTE | 2019-02-23 11:35 | P.DS ---
Providers Date of admission: 02/22/19 11:30 Expected date of discharge: 02/23/19 Attending physician: Alton Guerra Consults: 02/22/19 11:56 Consult Physician Routine Consulting Provider: David Simpson Consult Reason/Comments: medical management Do you want consulting provider notified?: Yes Primary care physician: Didier Montoya - Discharge Diagnosis(es) (1) Osteoarthritis of left hip Current Visit: Yes Status: Acute (2) S/P total hip arthroplasty Current Visit: Yes Status: Acute Hospital Course: This is a 68-year-old male with known history of degenerative arthritis of the left hip. The patient presents for evaluation. After discussion and consideration patient elects to proceed with total hip arthroplasty. The patient is seen preoperatively by Dr. Guerra and medically cleared for surgery by their primary care physician. Patient is admitted to [facility] on 02/22/2019 for total hip arthroplasty. The procedures performed without complication or sequelae. The patient is doing well postoperatively. Labs and vital signs are stable on day of discharge. On day of discharge patient's hip incision is healing well. There is minimal erythema. There is no drainage noted at this time. There is minimal soft tissue swelling to the hip and thigh. Patient has full foot and ankle motion without difficulty or pain. Calf is soft and nontender to palpation. Neurovascular status to the left lower extremity is intact. Patient is discharged home in good condition. Opioid start talking form is reviewed and signed at patient bedside. Please see med rec for accurate list of home medications. Plan - Discharge Summary Discharge Rx Participant: No New Discharge Prescriptions: New Aspirin 325 mg PO BID #60 tab HYDROcodone/APAP 5-325MG [[place] 5-325] 1 - 2 tab PO Q6HR PRN #56 tab PRN Reason: Pain Sennosides [Senokot] 1 tab PO BID #60 tablet No Action Citalopram Hydrobromide [CeleXA] 40 mg PO QAM traMADol HCl [Ultram] 50 mg PO HS Lisinopril 20 mg PO QAM Atorvastatin [Lipitor] 20 mg PO QAM Ibuprofen 800 mg PO TID PRN PRN Reason: Pain Discharge Medication List Citalopram Hydrobromide [CeleXA] 40 mg PO QAM 12/19/17 [History] Atorvastatin [Lipitor] 20 mg PO QAM 02/18/19 [History] Ibuprofen 800 mg PO TID PRN 02/18/19 [History] Lisinopril 20 mg PO QAM 02/18/19 [History] traMADol HCl [Ultram] 50 mg PO HS 02/18/19 [History] Aspirin 325 mg PO BID #60 tab 02/23/19 [Rx] HYDROcodone/APAP 5-325MG [[place] 5-325] 1 - 2 tab PO Q6HR PRN #56 tab 02/23/19 [Rx] Sennosides [Senokot] 1 tab PO BID #60 tablet 02/23/19 [Rx] Follow up Appointment(s)/Referral(s): [facility], [NON-STAFF] - As Needed Alton Guerra DO [Doctor of Osteopathic Medicine] - 2 Weeks Activity/Diet/Wound Care/Special Instructions: Weightbearing as tolerated with walker. Leave dressing intact. Dressing may be removed by home care nurse or by patient in 10 days. May shower with dressing on. Please follow-up with [facility] in 2 weeks and call with any questions or concerns, . Discharge Disposition: HOME WITH HOME HEALTH SERVICES
--- NOTE | 2019-02-23 15:32 | PN ---
PROGRESS NOTE DATE OF SERVICE: 02/23/2019 This is a 68-year-old gentleman who was admitted after left total hip joint arthroplasty, improving significantly. No chest pain. No palpitations. No fever. PHYSICAL EXAM: Alert and oriented x3, the pulse is 92, blood pressure 108/60, respiration 16, temperature 98.8, pulse ox 98% on room air. HEENT: Conjunctivae normal. NECK: No jugular venous distension. CARDIAC: S1, S2, muffled. RESPIRATORY: Breath sounds diminished at the bases. No rhonchi. No crackles. ABDOMEN: Soft. LEGS: Status post surgery. NERVOUS SYSTEM: No focal deficits. LAB: Hemoglobin 12.3. ASSESSMENT: 1. Status post left total hip joint arthroplasty for severe degenerative joint disease. 2. Hypertension. 3. Hyperlipidemia. 4. Degenerative joint disease. 5. History of pneumonia. 6. Increased AST. 7. History of anxiety, depression. RECOMMENDATION: Recommend to continue with the current management and symptomatic treatment. Resume the home medications. DVT prophylaxis. Incentive spirometry. Follow up with Orthopedic Surgery as recommended. Further recommendations per Orthopedic Surgery. Follow up with primary physician Dr. Montoya closely. Further recommendations to follow. MMODL / IJN: [id number] /
== END 2019-02-23 15:24 | disposition home health service (06) | DRG 470 ==
LOC: 2ORMAIN 11:30 → 4SSUR 15:05
PROVIDERS: ADMIT Orthopaedic Surgery; ATTEND Orthopaedic Surgery
PROC: 30233N0 Transfusion of Autologous Red Blood Cells into Peripheral Vein, Percutaneous Approach (ICD-10-PCS; 2019-02-22)
PROC: 0SRB06A Replacement of Left Hip Joint with Oxidized Zirconium on Polyethylene Synthetic Substitute, Uncemented, Open Approach (ICD-10-PCS; principal; 2019-02-22 12:30)
DX: M16.12 Unilateral primary osteoarthritis, left hip (principal); E03.9 Hypothyroidism, unspecified; E78.5 Hyperlipidemia, unspecified; I10 Essential (primary) hypertension; F32.9 Major depressive disorder, single episode, unspecified; F41.9 Anxiety disorder, unspecified; H91.90 Unspecified hearing loss, unspecified ear; R26.9 Unspecified abnormalities of gait and mobility; Z87.01 Personal history of pneumonia (recurrent); Z96.641 Presence of right artificial hip joint; Z79.899 Other long term (current) drug therapy; Z88.0 Allergy status to penicillin; Z88.2 Allergy status to sulfonamides; Z82.49 Family history of ischemic heart disease and other diseases of the circulatory system
CPT/HCPCS: 73501; 85025; 86850; 86891; 86900; 86901; 88300

== ENCOUNTER → 2019-08-31 | Outpatient (CLI) | payer MEDICARE, OTHER ==
[2019-08-31 11:58] LABS: Creatine Kinase MB 1.1 ng/mL (0.0-2.4); Troponin I <0.012 ng/mL (0.000-0.034)
== END | disposition home or self-care (01) ==
LOC: LABWHC1 10:59
PROVIDERS: ATTEND Nurse Practitioner Family
DX: R07.9 Chest pain, unspecified (principal)
CPT/HCPCS: 36415; 82553; 84484

== ENCOUNTER → 2019-10-14 | Outpatient (CLI) | payer MEDICARE, OTHER ==
[2019-10-14 14:44] LABS: Basophils # (A) 0.1 k/uL (0-0.2); Basophils % (A) 1 %; Eosinophils # (A) 0.2 k/uL (0-0.7); Eosinophils % (A) 2 %; HCT 49.9 % (39.0-53.0); HGB 16.2 gm/dL (13.0-17.5); Lymphocytes # (A) 1.9 k/uL (1.0-4.8); Lymphocytes % (A) 26 %; MCHC 32.5 g/dL (31.0-37.0); MCV 89.4 fL (80.0-100.0); Mean Platelet Volume 6.7; Monocytes # (A) 0.7 k/uL (0-1.0); Monocytes % (A) 9 %; Neutrophils # (A) 4.3 k/uL (1.3-7.7); Neutrophils % (A) 60 %; Platelet Count 235 k/uL (150-450); RBC 5.58 m/uL (4.30-5.90); RDW 13.2 % (11.5-15.5); WBC 7.3 k/uL (3.8-10.6)
[2019-10-14 18:58] LABS: African American GFR (CKD) 80.1 (60.0-200.0); Albumin 4.9 g/dL (3.80-4.90); Albumin/Globulin Ratio 2.04 (1.60-3.17); Anion Gap 9.4 mmol/L (4.00-12.00); BUN/Creat Ratio 19.09 Ratio (12.00-20.00); Calcium 9.7 mg/dL (8.7-10.3); Carbon Dioxide 25.6 mmol/L (21.6-31.8); Globulin 2.4 g/dL (1.6-3.3); Non-African American GFR(CKD) 69.1 (60.0-200.0); Potassium 4.5 mmol/L (3.5-5.5); Total Bilirubin 0.6 mg/dL (0.3-1.2); Total Protein 7.3 g/dL (6.2-8.2)
== END | disposition home or self-care (01) ==
LOC: LABWHC1 14:07
PROVIDERS: ATTEND Nurse Practitioner Family
DX: R07.9 Chest pain, unspecified (principal)
CPT/HCPCS: 36415; 80053; 85025

== ENCOUNTER → 2020-01-19 | Outpatient (CLI) | payer MEDICARE, OTHER ==
--- NOTE | 2020-01-19 15:17 | US ---
EXAMINATION TYPE: US carotid duplex BILAT DATE OF EXAM: 01/19/2020 COMPARISON: NONE CLINICAL HISTORY: 69-year-old male R07.9 chest pain, unspecified, R42 dizziness. Chest pain TECHNIQUE: Carotid duplex ultrasound examination. Indirect Doppler criteria is utilized. FINDINGS: EXAM MEASUREMENTS: RIGHT: Peak Systolic Velocity (PSV) cm/sec ----- Right CCA: 121.5 ----- Right ICA: 101.8 ----- Right ECA: 106.0 ICA/CCA ratio: 0.8 RIGHT: End Diastole cm/sec ----- Right CCA: 22.7 ----- Right ICA: 31.4 ----- Right ECA: 17.1 LEFT: Peak Systolic Velocity (PSV) cm/sec ----- Left CCA: 86.9 ----- Left ICA: 104.3 ----- Left ECA: 122.4 ICA/CCA ratio: 1.2 LEFT: End Diastole cm/sec ----- Left CCA: 13.6 ----- Left ICA: 37.0 ----- Left ECA: 15.0 VERTEBRALS (direction of flow): Right Vertebral: Antegrade Left Vertebral: Antegrade Rhythm: Normal GALLERY HOST NOTES: Bilateral wall thickening. No elevated velocities or significant stenosis. Plaqu e visualized in bilateral bulbs. Mild atherosclerotic change of the right bifurcation and moderate on the left. IMPRESSION: No hemodynamically significant internal carotid artery stenosis on either side. Criteria for Assigning % of Stenosis / Diameter reduction (Estimation based on the indirect measurements of the internal carotid artery velocities (ICA PSV). 1. Normal (no stenosis)=ICA PSV < 125 cm/s: ratio < 2.0: ICA EDV<40 cm/s. 2. Less than 50% stenosis=ICA PSV < 125 cm/s: ratio < 2.0: ICA EDV<40 cm/s. 3. 50 to 69% stenosis=ICA PSV of 125 to 230 cm/s: ration 2.0 ? 4.0: ICA EDV 40-100 cm/s. 4. Greater than 70% stenosis to near occlusion= ICA PSV > 230 cm/s: ratio > 4.0: ICA EDV > 100 cm/s. 5. Near occlusion= ICA PSV velocities may be low or undetectable: variable ratio and ICA EDV. 6. Total occlusion=unable to detect flow.
--- NOTE | 2020-01-27 14:20 | ECHOF ---
Referral Reason:R07.9 chest pain, unspecified, R42 dizziness MEASUREMENTS -------- HEIGHT: 180.3 cm WEIGHT: 97.5 kg BP: RVIDd: 2.6 cm (< 3.3) IVSd: 1.5 cm (0.6 - 1.1) LVIDd: 2.4 cm (3.9 - 5.3) LVPWd: 1.5 cm (0.6 - 1.1) IVSs: 1.7 cm LVIDs: 1.5 cm LVPWs: 1.7 cm LAESV Index (A-L): 22.72 ml/m Ao Diam: 2.8 cm (2.0 - 3.7) AV Cusp: 2.0 cm (1.5 - 2.6) LA Diam: 3.2 cm (2.7 - 3.8) MV EXCURSION: 16.312 mm (> 18.000) MV EF SLOPE: 75 mm/s (70 - 150) EPSS: 0.2 cm MV E Beny: 0.60 m/s MV DecT: 225 ms MV A Beny: 0.84 m/s MV E/A Ratio: 0.71 RAP: 5.00 mmHg RVSP: 19.65 mmHg TAPSE: 18.07 mm FINDINGS -------- Sinus rhythm. This was a technically good study. The left ventricular size is normal. There is moderate concentric left ventricular hypertrophy. O verall left ventricular systolic function is normal with, an EF between 55 - 60 %. The diastolic fi lling pattern is normal for the age of the patient 9.48. The right ventricle is normal in size. The left atrial size is normal. Normal LA size by volume 22+/-6 ml/m2. The right atrial size is normal. The aortic valve is trileaflet and appears structurally normal. The mitral valve is normal. Mild mitral regurgitation is present. The tricuspid valve appears structurally normal. Trace tricuspid regurgitation present. Right khoi tricular systolic pressure is normal at < 35 mmHg. There is no pulmonic regurgitation present. The aortic root size is normal. Normal inferior vena cava with normal inspiratory collapse consistent with estimated right atrial pre ssure of 5 mmHg. There is no pericardial effusion. CONCLUSIONS -------- 1. Sinus rhythm. 2. This was a technically good study. 3. The left ventricular size is normal. 4. There is moderate concentric left ventricular hypertrophy. 5. Overall left ventricular systolic function is normal with, an EF between 55 - 60 %. 6. The diastolic filling pattern is normal for the age of the patient 9.48 7. The right ventricle is normal in size. 8. The left atrial size is normal. 9. Normal LA size by volume 22+/-6 ml/m2. 10. The right atrial size is normal. 11. The aortic valve is trileaflet and appears structurally normal. 12. The mitral valve is normal. 13. Mild mitral regurgitation is present. 14. The tricuspid valve appears structurally normal. 15. Trace tricuspid regurgitation present. 16. Right ventricular systolic pressure is normal at < 35 mmHg. 17. There is no pulmonic regurgitation present. 18. The aortic root size is normal. 19. Normal inferior vena cava with normal inspiratory collapse consistent with estimated right atrial pressure of 5 mmHg. 20. There is no pericardial effusion. PRODUCTION DRILLING MACHINE OPERATOR: Keena Garcia RDCS
== END | disposition home or self-care (01) ==
LOC: RADUSWWP 14:33
PROVIDERS: ATTEND Family Medicine
DX: I08.1 Rheumatic disorders of both mitral and tricuspid valves (principal); R07.9 Chest pain, unspecified; R42 Dizziness and giddiness
CPT/HCPCS: 93306; 93880

== ENCOUNTER → 2020-01-26 | Outpatient (CLI) | payer MEDICARE, OTHER ==
--- NOTE | 2020-01-26 09:10 | US ---
EXAMINATION TYPE: US liver DATE OF EXAM: 01/26/2020 COMPARISON: CLINICAL HISTORY: R74.8 Abnormal liver enzymes. abnormal labs EXAM MEASUREMENTS: Liver Length: 18.0 cm Gallbladder Wall: 0.2 cm CBD: 0.5 cm Right Kidney: 10.4 x 5.2 x 4.9 cm Pancreas: Head and tail obscured by overlying bowel gas. Echogenic in appearance. Liver: Increased attenuation, decreased visualization of vessels suggestive of fatty infiltrate. Up per limits of normal in size. Echogenic and coarse in appearance. Gallbladder: wnl Evidence for sonographic Astorga's sign: neg CBD: wnl Right Kidney: No hydronephrosis or masses seen IMPRESSION: Probable fatty liver.
== END | disposition home or self-care (01) ==
LOC: RADUSWWP 08:02
PROVIDERS: ATTEND Family Medicine
DX: R74.8 Abnormal levels of other serum enzymes (principal)
CPT/HCPCS: 76705

== ENCOUNTER → 2020-03-06 | Outpatient (CLI) | payer MEDICARE, OTHER ==
--- NOTE | 2020-03-07 16:20 | NM ---
EXAMINATION TYPE: NM bone scan whole body DATE OF EXAM: 03/06/2020 COMPARISON: Kyphoplasty 08/10/2018 HISTORY: Low back pain. Stable burst fracture. Status post kyphoplasty L4 August 2018. Delayed whole-body scanning was performed following the injection of 22.2 mCi Tc 99m MDP. Images acq uired 4 hours post injection. FINDINGS: Degenerative uptake of the bilateral shoulders, sacroiliac joints, knees. There is mild uptake at the level of L4. IMPRESSION: Mild activity at the L4 vertebral body, consistent with history of L4 vertebral body fracture and kyp hoplasty August 2018. Activity may be sequela of chronic fracture and normalize over time, or repres ent subacute insufficiency.
== END | disposition home or self-care (01) ==
LOC: RADNMMAIN 10:39
PROVIDERS: ATTEND Orthopaedic Surgery Orthopaedic Surgery of the Spine
DX: S32.041D Stable burst fracture of fourth lumbar vertebra, subsequent encounter for fracture with routine healing (principal); Z98.1 Arthrodesis status; M54.16 Radiculopathy, lumbar region; M51.36 Other intervertebral disc degeneration, lumbar region; M47.817 Spondylosis without myelopathy or radiculopathy, lumbosacral region; M79.18 Myalgia, other site; M48.062 Spinal stenosis, lumbar region with neurogenic claudication; M51.37 Other intervertebral disc degeneration, lumbosacral region; E66.3 Overweight; Z68.29 Body mass index [BMI] 29.0-29.9, adult
CPT/HCPCS: 78306; A9503

== ENCOUNTER → 2020-05-25 | Outpatient (CLI) | payer MEDICARE, OTHER | END | disposition home or self-care (01) | LOC: LABWHC1 09:52 | PROVIDERS: ATTEND Family Medicine | DX: Z20.828 Contact with and (suspected) exposure to other viral communicable diseases (principal) | CPT/HCPCS: U0003; C9803 ==

== ENCOUNTER → 2021-01-24 | Outpatient (CLI) | payer MEDICARE, OTHER ==
--- NOTE | 2021-01-24 15:26 | XR ---
EXAMINATION TYPE: XR chest 2V DATE OF EXAM: 01/24/2021 COMPARISON: Chest x-ray 07/30/2018 HISTORY: Dyspnea, unexplained weight loss TECHNIQUE: Frontal and lateral views of the chest are obtained. FINDINGS: Triangular soft tissue density near the left costophrenic angle measures 8 mm, interval fin ding. There is no focal air space opacity, pleural effusion, or pneumothorax seen. The cardiac silho uette size is within normal limits. Stable elevation of the right hemidiaphragm shows eventration ch fany. The osseous structures are intact. IMPRESSION: Question a nodular density at the left costophrenic angle, follow-up
== END | disposition home or self-care (01) ==
LOC: RADXRMAIN 14:45
PROVIDERS: ATTEND Family Medicine
DX: R06.00 Dyspnea, unspecified (principal)
CPT/HCPCS: 71046

== ENCOUNTER → 2021-02-13 | Outpatient (CLI) | payer MEDICARE, OTHER ==
--- NOTE | 2021-02-14 07:23 | US ---
EXAMINATION TYPE: US thyroid st tissue head/neck DATE OF EXAM: 02/13/2021 COMPARISON: NONE CLINICAL HISTORY: R59.0 Cervical Lymphadenopathy. Patient stated physician felt upper neck lymph node s GLAND SIZE: Right Lobe: 4.5 x 1.5 x 1.7 cm Overall Parenchyma: homogenous Left Lobe: 4.1 x 1.2 x 1.5 cm Overall Parenchyma: homogeneous Isthmus Thickness: 0.3 cm No thyroid nodules are seen bilaterally. Bilateral neck scanned: couple of lymph nodes are seen bilaterally. Largest upper right lymph node se en =1.8 x 0.7 x 0.5cm and largest of multiple upper left neck lymph nodes seen = 1.5 x 0.9 x 0.9cm. IMPRESSION: No definite solid thyroid nodules identified. 2017 ACR TI-RADS LEVEL: TR-RADS 1 - BENIGN: No FNA *Highest TI-RADS level nodule reported
== END | disposition home or self-care (01) ==
LOC: RADUSWWP 15:53
PROVIDERS: ATTEND Family Medicine
DX: R59.0 Localized enlarged lymph nodes (principal)
CPT/HCPCS: 76536

== ENCOUNTER → 2021-03-09 | Outpatient (CLI) | payer MEDICARE, OTHER ==
--- NOTE | 2021-03-10 21:24 | CT ---
EXAMINATION TYPE: CT chest w con DATE OF EXAM: 03/09/2021 COMPARISON: Chest x-ray 01/24/2011 HISTORY: Lung nodule, abnormal weight loss CT DLP: 353.40 mGycm, Automated exposure control for dose reduction was used. CONTRAST: Performed injected with 100 mL of Isovue 300. TECHNIQUE: Axial images were obtained at 5 mm thick sections. Reconstructed images are reviewed on [employer] computer in the coronal plane. FINDINGS: Portion of the thyroid visualized is normal. Very tiny yolk 0.4 cm nodule may be at the left diaphragm, example image series 3 image 51, series 4 image 51. This is somewhat more inferior than expected for the nodule identified by the chest x-ray. No abnormality corresponding to the chest x-ray of the left basilar nodules identified. No enlarged mediastinal or hilar adenopathy is evident. The ascending aorta diameter at the level o f the main pulmonary artery is 3.4 cm. The main pulmonary artery diameter at the bifurcation is 2.[address] sections are obtained through the upper abdomen. Abdomen is essentially unremarkable. IMPRESSIONS: 1. Possible nodule at the diaphragm on the left on likely correlates with the chest x-ray finding. Re commend CT chest one year. 2. No suspicious abnormalities to account for chest x-ray suspected nodule.
== END | disposition home or self-care (01) ==
LOC: RADCTMAIN 15:46
PROVIDERS: ATTEND Family Medicine
DX: R91.1 Solitary pulmonary nodule (principal)
CPT/HCPCS: 82565; 84520; 71260; 36415; Q9967

== ENCOUNTER → 2021-04-25 | Outpatient (CLI) | payer MEDICARE, OTHER | END | disposition home or self-care (01) | LOC: LABWHC1 13:08 | PROVIDERS: ATTEND Family Medicine | DX: E29.1 Testicular hypofunction (principal) | CPT/HCPCS: 88230; 88262 ==

== ENCOUNTER → 2021-09-12 | Outpatient (CLI) | payer MEDICARE, OTHER ==
[2021-09-12 11:36] LABS: African American GFR (CKD) >90 (>60 ml/min/1.73 sqM); Blood Urea Nitrogen 27 mg/dL (9-20); Non-African American GFR(CKD) 79 (>60 ml/min/1.73 sqM)
--- NOTE | 2021-09-12 12:52 | CT ---
EXAMINATION TYPE: CT chest w con DATE OF EXAM: 09/12/2021 COMPARISON: 03/09/2021 HISTORY: 71-year-old male R91.1, Lung Nodule TECHNIQUE: Contiguous axial scanning of the chest after the administration of 100 mL of Isovue 300. Coronal/sagittal reconstructions performed. CT DLP: 410.80mGycm. Automatic exposure control utilized for a dose reduction. FINDINGS: Heart normal size without pericardial effusion. Minimal LAD and RCA coronary artery calcifications ar e present. Aorta normal caliber with minimal arch calcifications into metatarsals of branching anatomy. No thoracic lymphadenopathy by CT size criteria. Some strandy atelectasis inferior lingula. Minimal biapical pleural parenchymal scarring. No consolid ation or pleural effusion. Subtle tiny 4 mm pleural nodule along the left hemidiaphragm, axial images 51 remains unchanged. Visualized upper abdomen shows a small hypodensity central right liver lobe at 9 mm, too small for CT characterization, stable suggesting a benign cyst. Scattered mild to moderate stool is scattered col onic diverticulosis. There have be some focal thickening along the gastric antrum, refer to axial jeramy ge 49 through 51. Correlate for any symptoms of gastritis. Bones: No osseous destructive process. IMPRESSION: 1. Stable 4 mm subpleural pulmonary nodule at the left base compatible with a benign etiology. 2. Mild fold thickening along the gastric antrum. Query any symptoms of gastritis.
== END | disposition home or self-care (01) ==
LOC: RADCTMAIN 10:41
PROVIDERS: ATTEND Internal Medicine Critical Care Medicine
DX: R91.1 Solitary pulmonary nodule (principal); K31.89 Other diseases of stomach and duodenum
CPT/HCPCS: 82565; 84520; 71260; 36415; Q9967

== ENCOUNTER → 2021-11-28 | Outpatient (CLI) | payer MEDICARE, OTHER ==
[2021-11-28 18:02] LABS: Basophils # (A) 0.05 X 10*3/uL (0.00-0.10); Basophils % (A) 0.7 %; Eosinophils # (A) 0.19 X 10*3/uL (0.04-0.35); Eosinophils % (A) 2.7 %; HCT 46.8 % (39.6-50.0); HGB 15.1 g/dL (13.0-17.0); Immature Grans, Automated 0.4 %; Lymphocytes # (A) 1.85 X 10*3/uL (0.90-5.00); Lymphocytes % (A) 26.5 %; MCH 29.6 pg (27.0-32.0); MCHC 32.3 g/dL (32.0-37.0); MCV 91.8 fL (80.0-97.0); Mean Platelet Volume 9.4 fL (9.5-12.2); Monocytes # (A) 0.87 X 10*3/uL (0.20-1.00); Monocytes % (A) 12.5 %; NRBC Per 100 WBC 0 /100 WBCS (0.0-0.0); Neutrophils # (A) 3.99 X 10*3/uL (1.80-7.70); Neutrophils % (A) 57.2 %; Platelet Count 223 X 10*3/uL (140-440); RDW 13.1 % (11.5-14.5); WBC 6.98 X 10*3/uL (4.50-10.00)
[2021-11-28 20:37] LABS: % Iron Saturation 36.65 (15.00-50.00); Albumin 4.7 g/dL (3.8-4.9); Albumin/Globulin Ratio 1.72 (1.60-3.17); Anion Gap 13.5 mmol/L (10.00-18.00); BUN/Creat Ratio 22.8 Ratio (12.00-20.00); Blood Urea Nitrogen 22.3 mg/dL (9.0-27.0); Calcium 9.6 mg/dL (8.7-10.3); Carbon Dioxide 20.4 mmol/L (20.0-27.5); Globulin 2.7 g/dL (1.6-3.3); Non-African American GFR(CKD) 78.5 (60.0-200.0); Potassium 4.6 mmol/L (3.5-5.5); Total Bilirubin 0.6 mg/dL (0.30-1.20); Total Protein 7.4 g/dL (6.2-8.2)
[2021-11-28 21:48] LABS: Ceruloplasmin 17.9 mg/dL (20.0-60.0)
[2021-11-28 22:33] LABS: Protein, Total 7.4 g/dL (6.2-8.2)
[2021-11-29 14:38] LABS: Albumin 4.45 g/dL (3.80-4.90); Gamma Globulin 0.92 g/dL (0.70-1.50)
== END | disposition home or self-care (01) ==
LOC: LABWHC1 13:52
PROVIDERS: ATTEND Nurse Practitioner Family
DX: R74.01 Elevation of levels of liver transaminase levels (principal)
CPT/HCPCS: 36415; 80053; 82103; 82390; 82728; 83516; 83540; 83550; 84165; 85025; 86038